=== PATIENT | male | born 1955 | race Caucasian/White ===

== ENCOUNTER 2018-10-09 11:30 | Emergency (ER) | payer MEDICARE, SELFPAY ==
[2018-10-09 11:31] VITALS: BP 148/75; PULSE 84; RESP 20; TEMP 36.6; O2SAT 97; BMI 34.0
--- NOTE | 2018-10-09 11:42 | CT_ITS ---
STUDY: CT ABDOMEN AND PELVIS WITHOUT CONTRAST REASON FOR EXAM: Male, 63 years old. Rectal bleeding for 2 days. RADIATION DOSAGE (If Supplied By Facility): CTDIvol = ( 16.12 ) mGy, DLP = ( 870.07 ) mGycm TECHNIQUE: Transaxial images were obtained from the dome of the diaphragm to the symphysis pubis without oral contrast, and without intravenous contrast. Sagittal and coronal images were reconstructed. Individualized dose optimization techniques were used for this CT. COMPARISON: None. FINDINGS: Lung bases demonstrate no evidence for consolidative process. Platelike atelectasis in the left lingula. No discrete hepatic lesions. Spleen appears unremarkable. Pancreas and adrenal glands are essentially within normal limits. Bowel gas pattern is nonobstructive. Kidneys demonstrate no evidence for hydronephrosis. No free intraperitoneal air seen. No free fluid in the pelvis. Femorofemoral bypass graft is seen. There is a focal area of wall thickening of the sigmoid colon noted may relate with mild acute diverticulitis. Underlying mass is not excluded from this exam. Colonoscopy is suggested. Gallbladder is nondistended. Osseous structures demonstrate no acute abnormalities. Asymmetric atrophy of the right kidney noted with calcifications likely vascular. Calcifications at the origin of the renal arteries also seen, right greater than left Degenerative changes of the lumbar spine predominant at L5-S1 level. IMPRESSION: Focal segmental area of wall thickening involving the sigmoid colon. Differential considerations include mild acute diverticulitis, underlying mass. Colonoscopy is suggested. No evidence for small bowel obstruction. No evidence for obstructive uropathy. Electronically Signed: Jerry Arroyo, at 12:40 EDT Tel , Service support , CT/Abdomen/Pelvis without Cont
--- NOTE | 2018-10-09 11:58 | ED.DCSUM_ITS ---
History of Present Illness Chief Complaint: GI Bleed Informant: Patient Onset: Yesterday Current Severity: Mild Narrative: Rectal bleeding today the patient history of peripheral vascular disease multiple vascular grafts including what sounds like an aorto bifemoral graft sometime ago he is on Coumadin. He indicates he was in usual state of good health he is from the [facility] visiting [employer] he is noticed intermittent rectal bleeding since yesterday and more today and came into be evaluated he is not prone to rectal bleeding he is never had a colonoscopy. He is had no vomiting of blood no fever no cough no weakness just intermittent rectal bleeding he has no signs of any type of vascular compromise or issues Past Medical History - Allergies and Home Meds Allergies/Adverse Reactions: Allergies Penicillins Allergy (Verified 10/09/18 11:33) Swelling Primary Care Physician: [facility] Doctor,Out of [NON-STAFF] - Past Medical History: - - Peripheral vascular disease multiple vascular surgical procedures Review of Systems General: Denies: Chills, Fever, Sweats Eyes: Denies: Visual changes - bilaterally, Diplopia ENT: Denies: Rhinorrhea, Sore throat Cardiovascular: Denies: Chest pain, Palpitations Respiratory: Denies: Dyspnea, Cough, Dyspnea on exertion Gastrointestinal: Reports: - - The bleeding. Denies: Abdominal pain, Nausea, Vomiting, Diarrhea, Melena, Hematochezia Genitourinary: Denies: Dysuria, Hematuria, Frequency Musculoskeletal: Denies: Back pain, Extremity Pain Skin: Denies: Rash, Wounds Neurological: Denies: Headache, Weakness, Numbness Physical Exam Vital Signs/Narrative: Vital Signs Temp Pulse Resp BP Pulse Ox 10/09/18 11:31 98 F 84 20 H 148/75 H 97 General: Well nourished, Well developed, No Acute Distress Head: Normocephalic, Atraumatic Eyes: Perrl, EOMI ENT: Moist mucous membranes, No rhinorrhea Neck: Supple, Nontender Cardiovascular: Regular rate, Regular rhythm, No murmurs Respiratory: No distress, CTA bilaterally, Chest nontender Abdomen: Soft, Nontender, Nondistended, Normal bowel sounds Rectal: - - Nontender there is some blood-streaked stool Back: Nontender, Normal Inspection Extremities: Nontender, No edema Skin: Normal color, No rash Neurological: Alert, Oriented x3, Cranial nerves II-XII grossly intact, Normal Strength, Normal Sensation Psychological: Normal affect, Normal Mood Diagnostic/Tx/Re-eval - Medical Decision Making The differential is extensive which certainly include upper versus lower GI bleed diverticulitis he has no abdominal pain no lower extremity pain just intermittent rectal bleeding he was basically in the area shopping [employer] and wanted to stop and to be evaluated his INR recently was 3.0 he has no other complaints The patient screening labs are generally unremarkable see those reports, his CT abdomen shows nothing acute questionable sigmoid inflammation mild differential per radiologist would be diverticulitis versus mass recommend colonoscopy the neetu cardona has never had a colonoscopy He remains hemodynamically stable here I had a long conversation with the patient at this time we discussed inpatient versus outpatient management he wants to go home as he lives in the [facility] he will be started on Cipro and Flagyl he understands the concept of GI bleeding colon cancer metastasis to he will follow-up with his outpatient providers to have this further evaluated and return for change in symptoms he will be started on the above medications These note the patient's INR is 3 which is stable for him I did explain to him that the antibiotics could affect an elevated INR and he needs to have that closely monitored by his outpatient providers and he understands Home stable Final impression Rectal bleeding, history of Coumadin therapy, history of peripheral vascular disease, questionable abnormality of sigmoid colon on CT ED Disposition - Plan for ED Patient: Diagnosis: Rectal bleeding Instructions: RECTAL BLEED, Stable Prescriptions: Ciprofloxacin [Cipro] 500 mg PO BID #14 tab Prescription Printed metroNIDAZOLE [Flagyl] 500 mg PO Q6H #40 tab Prescription Printed Referrals: [facility] Doctor,Out of [NON-STAFF] - Additional Instructions: Follow-up with her outpatient providers for further evaluation management of the rectal bleeding which could be from infection colitis tumor or cancer which can all be life-threatening
[2018-10-09] MEDS: 0.9% Normal Saline 1,000 ML 125 ML IV (12:16)
[2018-10-09 12:28] LABS: Absolute Lymphocyte Count 0.76 X10^3/uL (0.83-4.51); Basophil# 0.02 X10^3/uL; Basophil% 0.4 % (0-1); Eosinophil# 0.09 X10^3/uL; Eosinophils% 1.7 % (0-5); Hematocrit 39.8 % (40-54); Hemoglobin 13.1 g/dL (13.0-16.5); Lymphocyte # 0.76 X10^3/ul (4.0); Lymphocyte % 14.3 % (19-41); Mean Corp Hgb Conc 32.9 g/dL (32-36); Mean Corpuscular Hgb 28.2 pg (27.0-32.0); Mean Corpuscular Volume 85.8 fL (80-94); Mean Platelet Vol. 8.9 fl (6.2-12.0); Monocyte# 0.48 X10^3/uL; NRBC Flagged by Analyzer 0 % (0-5); Neutrophil # 3.97 X10^3/uL (2.7-7.7); Neutrophil % 74.4 % (47-70); Platelet Count 181 K/mm3 (150-450); RBC Distribution Width CV 13.1 % (11.6-14.6); RBC Distribution Width SD 40.4 fl (35.1-43.9); Red Blood Count 4.64 M/mm3 (4.6-6.2); White Blood Count 5.3 K/mm3 (4.4-11.0)
[2018-10-09 12:38] LABS: Prothrombin Time (Protime)PT. 31.3 SECONDS (11.7-14.9)
[2018-10-09 12:43] LABS: AST(SGOT) 8 U/L (15-37); Alanine Aminotransfer ALT/SGPT 27 U/L (16-61); Albumin, Serum 3.8 g/dL (3.2-5.0); Alkaline Phosphatase 98 U/L (45-117); Anion Gap 7 (5-15); BUN 20 mg/dL (7-18); BUN/Creat Ratio 17.4 RATIO (10-20); Bilirubin, Direct 0.08 mg/dL (0.00-0.30); Chloride 105 mmol/L (98-107); Creatinine, Serum 1.15 mg/dL (0.70-1.30); EST Glomerular Filtration Rate 68 mL/min (>60); Est Glom Filt Rate - Afr Amer 82 mL/min (>60); Estimated Creatinine Clearance 65.75 ml/min; Globulin 3.6 g/dL (2.2-4.2); Glucose 249 mg/dL (74-106); Lipase 198 U/L (73-393); Potassium 4.1 mmol/L (3.5-5.1); Protein, Total 7.4 g/dL (6.4-8.2); Sodium Level 138 mmol/L (136-145)
[2018-10-09] MEDS: metroNIDAZOLE 500 MG Tablet PO (13:54)
[2018-10-09] MEDS: Ciprofloxacin 250 MG Tablet 500 MG PO (13:54)
[2018-10-09 14:02] VITALS: BP 134/80; PULSE 84; RESP 18; O2SAT 95
== END 2018-10-09 14:03 | disposition home or self-care (01) ==
PROVIDERS: Emergency Provider Emergency Medicine
DX: K62.5 Hemorrhage of anus and rectum (principal); I73.9 Peripheral vascular disease, unspecified; Z88.0 Allergy status to penicillin; Z79.01 Long term (current) use of anticoagulants; Z79.84 Long term (current) use of oral hypoglycemic drugs; Z79.899 Other long term (current) drug therapy
CPT/HCPCS: 74176; 80048; 80076; 83690; 85025; 85610; 96360; 96361; 99284; J7030